=== PATIENT | male | born 1960 | race American Indian/Alaskan Native ===

== ENCOUNTER 2019-03-03 12:36 | Outpatient (CLI) | payer OTHER ==
--- NOTE | 2019-03-03 14:31 | XRay Report ---
LEFT KNEE, 3 VIEWS INDICATION: PAIN IN LEFT KNEE. COMPARISON: None. IMPRESSION: Moderate to severe osteoarthritic changes are identified in all 3 compartments of the le ft knee. No evidence for fracture or bone lesion. A small joint effusion is noted on the lateral stacy ge. No acute osseous injury is identified. Signer Name: Juan Francisco Asencio Jr, MD Signed: 03/03/2019 2:27 PM Workstation Name: [id number]
== END 2019-03-03 12:37 | disposition home or self-care (01) ==
LOC: XRAY 12:36
PROVIDERS: ATTEND Internal Medicine
DX: M17.12 Unilateral primary osteoarthritis, left knee (principal)